=== PATIENT | female | born 1970 | race American Indian/Alaskan Native ===

== ENCOUNTER 2016-08-07 03:57 | Emergency (ER) | payer OTHER ==
[2016-08-07 04:48] LABS: Basophils % (Auto) 0.5 % (0.0-1.8); Eosinophils % (Auto) 0.7 % (0.0-4.3); Hematocrit 34.2 % (30.3-42.9); Mean Corpuscular HGB Conc 32 % (30-34); Mean Corpuscular Hemoglobin 26 pg (28-32); Mean Corpuscular Volume 82 fl (79-97); Platelet Count 177 K/mm3 (140-440); Red Blood Count 4.16 M/mm3 (3.65-5.03); Red Cell Distribution Width 17.3 % (13.2-15.2); White Blood Count 4.8 K/mm3 (4.5-11.0)
[2016-08-07 05:13] LABS: Anion Gap 17 mmol/L; BUN/Creatinine Ratio 18.75; Blood Urea Nitrogen 15 mg/dL (7-17); Carbon Dioxide 26 mmol/L (22-30); Chloride 100.3 mmol/L (98-107); Glucose 117 mg/dL (65-100); Potassium 3.2 mmol/L (3.6-5.0); Sodium 140 mmol/L (137-145)
[2016-08-07 07:16] LABS: Bacteria,Urine 1+ /HPF (Negative); Bilirubin,Urine NEG (Negative); Blood,Urine MOD (Negative); Ketones,Urine NEG (Negative); Leukocyte Esterase,Urine NEG (Negative); Mucus,Urine FEW /HPF; Nitrite,Urine NEG (Negative); Protein,Urine <15 mg/dL mg/dL (Negative); Urobilinogen,Urine < 2.0 mg/dL (<2.0)
--- NOTE | 2016-08-07 08:05 | Emergency Department Report ---
HPI - General Chief Complaint: Dizziness Time Seen by Provider: 08/07/16 07:48 - HPI HPI: Chief complaint: Sinus drainage, headache, lightheadedness HPI: Patient is a 46-year-old female with a history of hypertension states she' s been having sinus congestion and drainage and a dull headache in her for head the last several days. Patient states when she stands up she feels lightheaded. Patient denies fever, cough, nausea, vomiting or diarrhea. Patient denies chest pain and shortness of breath. Mode of arrival: EMS Source: Patient Began: 2 days Duration: 2 days Context: The patient takes hydrochlorothiazide 25 mg with other blood pressure medications. Quality: Dull mild frontal headache Severity: Mild Improved with: Aleve Worsened with: Lightheadedness worse with sitting and standing Associated signs and symptoms: No chest pain ED Past Medical Hx - Past Medical History Previous Medical History?: Yes Hx Hypertension: Yes - Surgical History Past Surgical History?: Yes Additional Surgical History: c-sect (1997) - Social History Smoking Status: Never Smoker Substance Use Type: None - Medications Home Medications: Home Medications Medication Instructions Recorded Confirmed Last Taken Type Azithromycin [Zithromax TAB] 500 mg PO QDAY #3 tablet 08/07/16 Unknown Rx Fluticasone [Flonase] 1 spray NS QDAY #1 bottle 08/07/16 Unknown Rx Metoprolol Tartrate [Lopressor] 50 mg PO BID 08/07/16 08/07/16 08/06/16 History Potassium Chloride [K-Dur] 10 meq PO QDAY #7 tablet 08/07/16 Unknown Rx Triamter/Hctz 37.5-25 mg 1 tab PO QDAY 08/07/16 08/07/16 08/06/16 History [Maxzide-25] ED Review of Systems ROS: Stated complaint: DIZZINESS Other details as noted in HPI ROS Constitutional: No fever ENT: See HPI Cardiovascular: No chest pain Respiratory: No sob or cough GI: No nausea vomiting or diarrhea : No dysuria frequency or urgency, Skin: No rash Neuro: No focal weakness or numbness Psych: No depression Juan C/lymph: No edema Physical Exam - Physical Exam Vital Signs: Vital Signs 08/07/16 04:09 Temperature 98.4 F Pulse Rate 84 Respiratory 18 Rate Blood Pressure 138/94 O2 Sat by Pulse 100 Oximetry Physical Exam: GENERAL: The patient is well-developed well-nourished . She is not orthostatic. HEENT: Normocephalic. Atraumatic. Extraocular motions are intact. Patient has moist mucous membranes. TMs slightly erythematous, swollen nasal mucosa with yellow purulent drainage. Negative nystagmus on NECK: Supple. No meningitic signs are noted. There is no adenopathy noted. CHEST/LUNGS: Clear to auscultation. There is no respiratory distress noted. HEART/CARDIOVASCULAR: Regular. There is no tachycardia. There is no gallop rub or murmur. ABDOMEN: Abdomen is soft, nontender. Patient has normal bowel sounds. There is no abdominal distention. SKIN: There is no rash. There is no edema. There is no diaphoresis. NEURO: The patient is awake, alert, and oriented. The patient is cooperative. The patient has no focal neurologic deficits. The patient has normal speech. MUSCULOSKELETAL: There is no tenderness or deformity. There is no limitation range of motion. There is no evidence of acute injury. ED Course Vital Signs 08/07/16 04:09 Temperature 98.4 F Pulse Rate 84 Respiratory 18 Rate Blood Pressure 138/94 O2 Sat by Pulse 100 Oximetry - Reevaluation(s) Reevaluation #1: 08/07/16 08:12 Patient given 40 mEq of potassium by mouth ED Medical Decision Making - Lab Data Result diagrams: 08/07/16 04:39 08/07/16 04:39 Laboratory Tests 08/07/16 08/07/16 04:39 06:54 Troponin T < 0.010 Ur Specific [place] 1.015 Urine Protein <15 mg/dl Urine Glucose (UA) Neg Urine Ketones Neg Urine Blood Mod Ur Leukocyte Esterase Neg Urine WBC (Auto) 5.0 Urine RBC (Auto) 2.0 Urine HCG, Qual Negative Laboratory Tests 08/07/16 07:17 Troponin T < 0.010 - EKG Data -: EKG Interpreted by Me EKG shows normal: sinus rhythm Rate: normal (72) - EKG Data When compared to previous EKG there are: previous EKG unavailable Interpretation: normal EKG Critical care attestation.: If time is entered above; I have spent that time in minutes in the direct care of this critically ill patient, excluding procedure time. ED Disposition Clinical Impression: Hypokalemia Acute sinusitis Qualifiers: Sinusitis location: unspecified location Recurrence: not specified as recurrent Qualified Code(s): J01.90 - Acute sinusitis, unspecified Disposition: DISCHARGED TO HOME OR SELFCARE Is pt being admited?: No Does the pt Need Aspirin: No Condition: Stable Instructions: Hypokalemia (ED), Sinusitis (ED) Additional Instructions: Tylenol, ibuprofen or Aleve for pain as needed Prescriptions: Azithromycin [Zithromax TAB] 500 mg PO QDAY #3 tablet Fluticasone [Flonase] 1 spray NS QDAY #1 bottle Potassium Chloride [K-Dur] 10 meq PO QDAY #7 tablet Referrals: PRIMARY CARE, [Primary Care Provider] - 7-10 days [facility] [Provider Group] - 7-10 days Time of Disposition: 08:16
[2016-08-07 08:06] VITALS: BP 125/80
[2016-08-07] MEDS ORDERED: K-DUR PO ONE (08:12)
== END 2016-08-07 08:47 | disposition home or self-care (01) ==
LOC: ED 03:57
DX: E87.6 Hypokalemia (principal); J01.90 Acute sinusitis, unspecified; I10 Essential (primary) hypertension
CPT/HCPCS: 36415; 80048; 81001; 81025; 84484; 85025; 93005; 93010